=== PATIENT | male | born 1970 | race African-American/Black ===

== ENCOUNTER 2017-10-09 09:11 | Emergency (ER) | payer SELFPAY ==
[2017-10-09 11:22] VITALS: BP 143/77
== END 2017-10-09 11:22 | disposition home or self-care (01) ==
LOC: ED 09:11
DX: R07.89 Other chest pain (principal); V49.49XA Driver injured in collision with other motor vehicles in traffic accident, initial encounter; Y93.89 Activity, other specified; Y99.8 Other external cause status; Y92.89 Other specified places as the place of occurrence of the external cause